=== PATIENT | female | born 1965 | race African-American/Black ===

== ENCOUNTER 2016-07-16 13:33 | Day surgery (SDC) | payer BC ==
[2016-07-13 12:23] LABS: PARTIAL THROMBO TIME 27.6 SEC (22.5-37.2); PROTIME (NOT ORD) 12.6 SEC (12.0-14.5)
[2016-07-13 12:25] LABS: HEMATOCRIT 36.3 % (36.0-48.0); HEMOGLOBIN 11.6 g/dL (12.0-16.0)
[2016-07-13 12:32] LABS: BUN (BLOOD UREA NITROGEN) 12 MG/DL (6-23); CALCIUM, SERUM 8.9 MG/DL (8.5-10.4); CHLORIDE, SERUM 108 MMOL/L (96-112); CO2 (CARBON DIOXIDE) 25 MMOL/L (24-34); CREATININE 0.61 MG/DL (0.55-1.02); GFR AFRICAN AMERICAN 120 ML/MIN (>=60); GFR NON AFRICAN AMERICAN 104 ML/MIN (>=60); GLUCOSE, SERUM 98 MG/DL (60-99); POTASSIUM, SERUM 4.2 MMOL/L (3.5-5.3); SODIUM, SERUM 144 MMOL/L (135-148)
--- NOTE | ~2016-07-16 | OP ---
Record Of Operation [facility] [address] [place]. [address] NAME: ROSI GEE : 61 STATUS : [facility]#: [id number] AGE: 51 ADM/REG DATE : 07/16/16 MR#: [id number] REPORT SERV DATE: 07/21/16 DICTATED BY: DATE: REPORT STATUS : Draft TRANSCRIBED BY: MODL DATE: 07/20/16 DATE OF PROCEDURE: 07/16/2016 PREOPERATIVE DIAGNOSIS: Fracture of distal right fourth metaphyseal-diaphyseal region, metatarsal. POSTOPERATIVE DIAGNOSIS: Fracture of distal right fourth metaphyseal-diaphyseal region, metatarsal. NAME OF OPERATION: ORIF, fracture of fourth right metatarsal. SURGEON: Vel Christianson DPM. ANESTHESIA: General. HEMOSTASIS: Pneumatic ankle tourniquet. ESTIMATED BLOOD LOSS: Less than 30 mL. PROCEDURE IN DETAIL: Under mild sedation, the patient was brought to the operating room and placed on the operating table in supine position. A pneumatic ankle tourniquet was then placed about the patient's right ankle. Following the IV sedation, the right foot was scrubbed, prepped, and draped in the usual aseptic manner. Esmarch bandage was utilized to exsanguinate the patient's right foot and pneumatic ankle tourniquet was inflated to 250 mmHg. Attention was then directed to the dorsal aspect of the fourth metatarsal of right foot, where a 5 cm linear longitudinal incision was made. Incision deepened to subcutaneous tissue using sharp and blunt dissection. Care was taken to identify and retract all vital neurovascular structures. All bleeders were cauterized as necessary. Using intraoperative fluoroscopy, the fracture line was identified and a linear periosteal incision was made where a Saxis elevator was utilized to free the periosteal tissue from the bone to expose the fracture site at the operative site. The fracture was distracted and no fibrotic growth was noted at the fracture line. The fracture sites were "freshened" for compression. A K- wire was driven from dorsal to the plantar across the fracture site to prepare for internal fixation. A 2.0 cannulated cortical screw was introduced over the K-wire, where the dorsal fragment fractured into multiple pieces, which led to the removal of the K-wire and the cannulated screw. Another angle was decided upon from dorsolateral to plantar medial across the fracture site, where the K-wire was driven from dorsal to plantar for temporary fixation. Next, utilizing the 2.0 x 16 mm cannulated cortical screw, was inserted using the AO principles and techniques with good compression noted across the fracture site. Improved bone alignment was noted intrafluoroscopically. The wound was then flushed with copious amounts of normal sterile saline. Subcutaneous tissue reapproximated and coapted utilizing 3-0 Vicryl. The skin was reapproximated and coapted utilizing 4-0 nylon in a horizontal mattress simple interrupted suture technique. A postoperative block consisting of 19 mL of 0.5% Marcaine plain. The wound was dressed with Xeroform gauze and covered with sterile compressive dressing consisting of 4x4s, ABD pad, and 3-inch Conform gauze wrap. Pneumatic ankle tourniquet was then deflated and a prompt hyperemic response noted to all digits of Record Of Operation [address] [address] NAME: ROSI GEE : 61 STATUS : [facility] PAT#: [id number] AGE: 51 ADM/REG DATE : 07/16/16 MR#: [id number] REPORT SERV DATE: 07/21/16 DICTATED BY: DATE: REPORT STATUS : Draft TRANSCRIBED BY: MICAH DATE: 07/20/16 the right foot. Following a period of postoperative monitoring, the patient was discharged home on written and oral postop instructions. 1. Keep dressing dry and intact, right foot. 2. Elevate right foot when at rest. 3. The patient to remain nonweightbearing with crutch assistance. 4. The patient to call Dr. Christianson for all postoperative followup care if any problems arise. 5. The patient was prescribed [place] 10/325 mg, 1 tablet to be taken by mouth every 4 to 6 hours as needed for pain. Phenergan 25 mg, 1 tablet to be taken by mouth as needed for nausea. STEPHANIE Vel Christianson DPM / [id number] CC: Vel Christianson DPM
[~2016-07-16 13:33] MED LIST: CHANTIX0.5 PO
== END 2016-07-16 20:18 | disposition home or self-care (01) ==
LOC: SDC 13:33
PROVIDERS: Podiatrist
PROC: 0QSP04Z Reposition Left Metatarsal with Internal Fixation Device, Open Approach (ICD-10-PCS; principal; 2016-07-16 15:00)
DX: S92.341A Displaced fracture of fourth metatarsal bone, right foot, initial encounter for closed fracture (principal); F17.210 Nicotine dependence, cigarettes, uncomplicated; Z79.899 Other long term (current) drug therapy; Z98.890 Other specified postprocedural states
CPT/HCPCS: 71020; 76000; 80048; 85014; 85018; 85610; 85730; 93005; A9270-GY; C1713; J0690; J1885; J2250; J2405; J3010